=== PATIENT | male | born 1960 | race African-American/Black ===

== ENCOUNTER 2021-09-10 20:04 | Inpatient (IN) | payer SELFPAY ==
[2021-09-10] MEDS ORDERED: Vancomycin 1 GM/200 ML BAG ONE (20:35)
[2021-09-10] MEDS ORDERED: Cefepime 2 GM VIAL ONE (20:35)
[2021-09-10 20:44] LABS: #Basophils 0.1 thou/uL (0.0-0.2); #Lymphocytes 1.5 thou/uL (1.20-3.40); #Monocytes 0.8 thou/uL (0.11-0.59); #Neutrophils 12.8 thou/uL (1.40-6.50); %Basophils 0.4 % (0.0-1.0); %Eosinophils 0.2 % (0.0-10.0); %Lymphocytes 10.1 % (21.0-51.0); %Monocytes 5.3 % (0.0-10.0); Hemoglobin 15.7 g/dL (14.0-18.0); Mean Corpuscular HGB CONC 32.6 g/dL (32.0-36.0); Mean Corpuscular Hemoglobin 28.4 pg (27.0-31.0); Mean Platelet Volume 7.6 fL (7.4-10.4); Platelet Count 382 thou/uL (130-400); RBC Distribution Width 13.9 % (11.5-14.5); Red Blood Cell (RBC) Count 5.55 mill/uL (4.70-6.10); White Blood Cell (WBC) Count 15.2 thou/uL (4.8-10.8)
[2021-09-10 20:45] LABS: Bilirubin 1+ (Negative); Blood, Urine 3+ (Negative); Clarity Turbid (Clear); Glucose, Urine (Dipstick) Normal (Negative); Ketone, Urine Negative (Negative); Leukocyte Negative Leu/uL (Negative); Nitrite Negative (Negative); Protein, Urine (Dipstick) 100 mg/dL (Neg-Trace); RBC/HPF 21-50 HPF (0-3); Specific Gravity, Urine 1.026 (1.002-1.036); Squamous Epithelial 0-3 HPF (0-3); Transitional Epithelial 0-3 HPF (None Seen); WBC/HPF 0-3 HPF (0-3); pH, Urine 5.5 (5.0-9.0)
[2021-09-10 20:48] LABS: Amphetamine Not Detected (NotDetected); Barbiturates Screen Not Detected (NotDetected); Benzodiazepine Screen Not Detected (NotDetected); Cocaine Metabolite Screen Not Detected (NotDetected); Methadone Not Detected (NotDetected); Methamphetamine Not Detected (NotDetected); Opiate Screen Not Detected (NotDetected); Oxycodone Screen Not Detected (NotDetected); Phencyclidine (PCP) Not Detected (NotDetected); THC/Cannabinoid Screen Not Detected (NotDetected); Tricyclic Screen Not Detected (NotDetected)
[2021-09-10 21:04] LABS: ALT (SGPT) 101 U/L (8-55); AST (SGOT) 146 U/L (5-34); Acetaminophen Less than 10.0 mcg/mL (10.0-30.0); Albumin 4.8 g/dL (3.5-5.0); Alcohol Less than 10 mg/dL (Less than 10); Alkaline Phosphatase 95 U/L (40-110); Anion Gap 24 mmol/L (10-20); BUN (Urea Nitrogen) 78 mg/dL (8.4-25.7); Bilirubin, Total 3.6 mg/dL (0.2-1.2); Calc. Creatinine Clearance 0 mL/min (70-130); Calcium 10.2 mg/dL (7.8-10.44); Carbon Dioxide 18 mmol/L (22-29); Chloride 112 mmol/L (98-107); Globulin 4.3 g/dL (2.4-3.5); Glucose 152 mg/dL (70-105); Magnesium 3.3 mg/dL (1.6-2.6); Potassium 4.2 mmol/L (3.5-5.1); Protein, Total 9.1 g/dL (6.0-8.3); Salicylate Less than 8.0 mg/dL (15.0-30.0); Sodium 150 mmol/L (136-145)
[2021-09-10 21:06] LABS: Bacteria/HPF 4+ HPF (None Seen)
[2021-09-10 21:18] LABS: CK (CPK) 6160 U/L (30-200)
[2021-09-10 21:47] LABS: CKMB 12.7 ng/mL (0-6.6)
[2021-09-10] MEDS ORDERED: Acetaminophen 325 MG TAB PO PRN (23:48)
[2021-09-10] MEDS ORDERED: Ondansetron ODT 4 MG TAB PO PRN (23:48)
[2021-09-10] MEDS ORDERED: hydrALAZINE 20 MG/ML VIAL SLOW IVP PRN (23:51)
[2021-09-11 00:55] LABS: SARS-CoV-2 NAA Rapid Test Not Detected (NotDetected)
[2021-09-11 01:53] LABS: Anion Gap 19 mmol/L (10-20); BUN (Urea Nitrogen) 70 mg/dL (8.4-25.7); Calc. Creatinine Clearance 37 mL/min (70-130); Calcium 8.9 mg/dL (7.8-10.44); Carbon Dioxide 16 mmol/L (22-29); Chloride 117 mmol/L (98-107); Glucose 146 mg/dL (70-105); Potassium 4.2 mmol/L (3.5-5.1); Sodium 148 mmol/L (136-145)
[2021-09-11 06:38] LABS: #Basophils 0.1 thou/uL (0.0-0.2); #Lymphocytes 3.2 thou/uL (1.20-3.40); #Monocytes 1.6 thou/uL (0.11-0.59); #Neutrophils 12.8 thou/uL (1.40-6.50); %Basophils 0.4 % (0.0-1.0); %Eosinophils 0.1 % (0.0-10.0); %Lymphocytes 18.2 % (21.0-51.0); %Neutrophils 72.3 % (42.0-75.0); Hemoglobin 13.7 g/dL (14.0-18.0); Mean Corpuscular HGB CONC 31.8 g/dL (32.0-36.0); Mean Corpuscular Hemoglobin 28.2 pg (27.0-31.0); Mean Corpuscular Volume 88.5 fL (78.0-98.0); Mean Platelet Volume 7.4 fL (7.4-10.4); Platelet Count 319 thou/uL (130-400); RBC Distribution Width 13.7 % (11.5-14.5); Red Blood Cell (RBC) Count 4.85 mill/uL (4.70-6.10); White Blood Cell (WBC) Count 17.8 thou/uL (4.8-10.8)
[2021-09-11 06:56] LABS: Anion Gap 15 mmol/L (10-20); BUN (Urea Nitrogen) 69 mg/dL (8.4-25.7); Calc. Creatinine Clearance 44 mL/min (70-130); Calcium 8.9 mg/dL (7.8-10.44); Carbon Dioxide 18 mmol/L (22-29); Cardiac Risk 8.5 (Less than 4.5); Chloride 117 mmol/L (98-107); Cholesterol 237 mg/dl (< 200 Desired); Glucose 127 mg/dL (70-105); HDL Cholesterol 28 mg/dL (>60 Neg Risk); LDL Cholesterol, Calculated 173 mg/dL; Potassium 4.1 mmol/L (3.5-5.1); Sodium 146 mmol/L (136-145); Triglycerides 181 mg/dL (Less than 150)
[2021-09-11 06:57] LABS: Troponin I 0.256 ng/mL (< 0.028)
[2021-09-11] MEDS ORDERED: Enoxaparin Sodium 30 MG/0.3 ML SYRINGE SC SCH (09:00)
[2021-09-11] MEDS ORDERED: Aspirin 300 MG Suppository PR SCH (09:00)
[2021-09-11] MEDS ORDERED: Vancomycin HCl 1 GM in Sodium Chloride 0.9% 250 ML 300 ML IVPB SCH (09:00)
[2021-09-11] MEDS ORDERED: Enoxaparin Sodium 40 MG/0.4 ML SYRINGE SC SCH (09:45)
[2021-09-11] MEDS: Cefepime 2 GM in Sodium Chloride 0.9% 100 ML IVPB SCH ×2 (10:25→22:12)
[2021-09-11] MEDS: Dextrose 5 % And 0.9 % NaCl 1,000 ML IV SCH (14:11)
[2021-09-11] MEDS ORDERED: hydrALAZINE 20 MG/ML VIAL SLOW IVP PRN (17:15)
[2021-09-11] MEDS ORDERED: Atorvastatin Calcium 40 MG TAB PO SCH (21:00)
[2021-09-11] MEDS: Labetalol HCl 100 MG/20 ML VIAL SLOW IVP PRN (22:11)
[2021-09-11] MEDS: Vancomycin HCl 1.25 GM in Sodium Chloride 0.9% 250 ML 250 ML IVPB SCH (23:33)
[2021-09-12 04:49] LABS: #Basophils 0.1 thou/uL (0.0-0.2); #Eosinphils 0.2 thou/uL (0.0-0.7); #Lymphocytes 3.4 thou/uL (1.20-3.40); #Monocytes 1.3 thou/uL (0.11-0.59); #Neutrophils 9.2 thou/uL (1.40-6.50); %Basophils 0.5 % (0.0-1.0); %Eosinophils 1.5 % (0.0-10.0); %Lymphocytes 23.8 % (21.0-51.0); %Monocytes 9.2 % (0.0-10.0); Hemoglobin 13.5 g/dL (14.0-18.0); Mean Corpuscular HGB CONC 31.9 g/dL (32.0-36.0); Mean Corpuscular Hemoglobin 28.9 pg (27.0-31.0); Mean Corpuscular Volume 90.6 fL (78.0-98.0); Mean Platelet Volume 7.4 fL (7.4-10.4); Platelet Count 272 thou/uL (130-400); RBC Distribution Width 13.7 % (11.5-14.5); Red Blood Cell (RBC) Count 4.67 mill/uL (4.70-6.10); White Blood Cell (WBC) Count 14.2 thou/uL (4.8-10.8)
[2021-09-12 05:10] LABS: Hemoglobin A1c 5.2 % (4.0-6.0)
[2021-09-12 05:11] LABS: ALT (SGPT) 82 U/L (8-55); AST (SGOT) 117 U/L (5-34); Albumin 3.7 g/dL (3.5-5.0); Alkaline Phosphatase 73 U/L (40-110); Anion Gap 12 mmol/L (10-20); BUN (Urea Nitrogen) 49 mg/dL (8.4-25.7); Bilirubin, Total 2.4 mg/dL (0.2-1.2); Calc. Creatinine Clearance 60 mL/min (70-130); Calcium 8.9 mg/dL (7.8-10.44); Carbon Dioxide 22 mmol/L (22-29); Chloride 121 mmol/L (98-107); Globulin 3.3 g/dL (2.4-3.5); Glucose 109 mg/dL (70-105); Potassium 4.3 mmol/L (3.5-5.1); Sodium 151 mmol/L (136-145)
[2021-09-12 05:23] LABS: CK (CPK) 4973 U/L (30-200)
[2021-09-12] MEDS: Cefepime 2 GM in Sodium Chloride 0.9% 100 ML IVPB SCH ×2 (08:31→20:14)
[2021-09-12] MEDS: Enoxaparin Sodium 40 MG/0.4 ML SYRINGE SC SCH (08:31)
[2021-09-12] MEDS: Dextrose 5 % And 0.9 % NaCl 1,000 ML IV SCH ×2 (08:41→08:42)
[2021-09-12] MEDS ORDERED: Aspirin 325 mg Enteric Coated Tablet PO SCH (09:00)
[2021-09-12] MEDS: Dextrose 5% in Water 1,000 ML IV SCH ×2 (09:17→20:14)
[2021-09-12] MEDS: Labetalol HCl 100 MG/20 ML VIAL SLOW IVP PRN (17:37)
[2021-09-12 20:22] LABS: Vancomycin, Trough 6.3 ug/mL
[2021-09-12] MEDS: Vancomycin HCl 1.25 GM in Sodium Chloride 0.9% 250 ML 250 ML IVPB SCH (21:36)
[2021-09-12] MEDS: VANCOMYCIN 1.25 GM/250 ML BAG 1.25 GM in Premix Bag 1 BAG IVPB SCH (21:50)
[2021-09-13] MEDS: Labetalol HCl 100 MG/20 ML VIAL SLOW IVP PRN (00:09)
[2021-09-13 05:10] LABS: #Basophils 0.1 thou/uL (0.0-0.2); #Eosinphils 0.4 thou/uL (0.0-0.7); #Lymphocytes 3.6 thou/uL (1.20-3.40); #Monocytes 1.2 thou/uL (0.11-0.59); #Neutrophils 8.1 thou/uL (1.40-6.50); %Basophils 0.8 % (0.0-1.0); %Eosinophils 3.2 % (0.0-10.0); %Lymphocytes 26.9 % (21.0-51.0); %Monocytes 9.2 % (0.0-10.0); %Neutrophils 59.9 % (42.0-75.0); Hemoglobin 13.6 g/dL (14.0-18.0); Mean Corpuscular HGB CONC 31.2 g/dL (32.0-36.0); Mean Corpuscular Hemoglobin 28.3 pg (27.0-31.0); Mean Corpuscular Volume 90.6 fL (78.0-98.0); Mean Platelet Volume 7.6 fL (7.4-10.4); Platelet Count 306 thou/uL (130-400); RBC Distribution Width 13.8 % (11.5-14.5); Red Blood Cell (RBC) Count 4.82 mill/uL (4.70-6.10); White Blood Cell (WBC) Count 13.5 thou/uL (4.8-10.8)
[2021-09-13 05:34] LABS: ALT (SGPT) 112 U/L (8-55); AST (SGOT) 132 U/L (5-34); Albumin 3.8 g/dL (3.5-5.0); Alkaline Phosphatase 83 U/L (40-110); Anion Gap 13 mmol/L (10-20); BUN (Urea Nitrogen) 32 mg/dL (8.4-25.7); Bilirubin, Total 2.8 mg/dL (0.2-1.2); CK (CPK) 3803 U/L (30-200); Calc. Creatinine Clearance 69 mL/min (70-130); Calcium 9.1 mg/dL (7.8-10.44); Carbon Dioxide 20 mmol/L (22-29); Chloride 120 mmol/L (98-107); Globulin 3.5 g/dL (2.4-3.5); Glucose 104 mg/dL (70-105); Potassium 3.9 mmol/L (3.5-5.1); Protein, Total 7.3 g/dL (6.0-8.3); Sodium 149 mmol/L (136-145)
[2021-09-13] MEDS: Dextrose 5% in Water 1,000 ML IV SCH ×3 (08:20→20:20)
[2021-09-13] MEDS ORDERED: Aspirin 300 MG Suppository PR SCH (09:00)
[2021-09-13] MEDS: Cefepime 2 GM in Sodium Chloride 0.9% 100 ML IVPB SCH ×2 (09:24→20:19)
[2021-09-13] MEDS: Enoxaparin Sodium 40 MG/0.4 ML SYRINGE SC SCH (09:25)
[2021-09-13] MEDS: VANCOMYCIN 1.25 GM/250 ML BAG 1.25 GM in Premix Bag 1 BAG IVPB SCH ×2 (10:08→22:05)
[2021-09-13] MEDS ORDERED: cloNIDine 0.2mg/24 Hour PATCH TD SCH (17:00)
[2021-09-14 05:40] LABS: ALT (SGPT) 224 U/L (8-55); AST (SGOT) 193 U/L (5-34); Albumin 3.5 g/dL (3.5-5.0); Alkaline Phosphatase 98 U/L (40-110); Anion Gap 11 mmol/L (10-20); BUN (Urea Nitrogen) 28 mg/dL (8.4-25.7); Bilirubin, Total 1.7 mg/dL (0.2-1.2); CK (CPK) 2440 U/L (30-200); Calc. Creatinine Clearance 76 mL/min (70-130); Calcium 8.8 mg/dL (7.8-10.44); Carbon Dioxide 21 mmol/L (22-29); Chloride 117 mmol/L (98-107); Globulin 3.3 g/dL (2.4-3.5); Glucose 110 mg/dL (70-105); Potassium 3.9 mmol/L (3.5-5.1); Protein, Total 6.8 g/dL (6.0-8.3); Sodium 145 mmol/L (136-145)
[2021-09-14] MEDS: Cefepime 2 GM in Sodium Chloride 0.9% 100 ML IVPB SCH (07:40)
[2021-09-14] MEDS ORDERED: Budesonide 0.25 MG/2 ML NEB ONE (08:41)
[2021-09-14] MEDS: Enoxaparin Sodium 40 MG/0.4 ML SYRINGE SC SCH (08:47)
[2021-09-14] MEDS: Aspirin 325 mg Enteric Coated Tablet PO SCH (08:47)
[2021-09-14] MEDS: Dextrose 5% in Water 1,000 ML IV SCH ×2 (08:56→22:55)
[2021-09-14 09:18] LABS: Vancomycin, Trough 16.2 ug/mL
[2021-09-14] MEDS: VANCOMYCIN 1.25 GM/250 ML BAG 1.25 GM in Premix Bag 1 BAG IVPB SCH (09:36)
[2021-09-14 19:15] LABS: #Basophils 0.1 thou/uL (0.0-0.2); #Eosinphils 0.4 thou/uL (0.0-0.7); #Lymphocytes 4.1 thou/uL (1.20-3.40); #Monocytes 0.9 thou/uL (0.11-0.59); #Neutrophils 5.5 thou/uL (1.40-6.50); %Basophils 0.7 % (0.0-1.0); %Eosinophils 3.7 % (0.0-10.0); %Lymphocytes 37.3 % (21.0-51.0); %Monocytes 8.4 % (0.0-10.0); Hemoglobin 12.9 g/dL (14.0-18.0); Mean Corpuscular HGB CONC 31.3 g/dL (32.0-36.0); Mean Corpuscular Hemoglobin 28.4 pg (27.0-31.0); Mean Corpuscular Volume 90.5 fL (78.0-98.0); Mean Platelet Volume 7.8 fL (7.4-10.4); Platelet Count 289 thou/uL (130-400); RBC Distribution Width 13.7 % (11.5-14.5); Red Blood Cell (RBC) Count 4.56 mill/uL (4.70-6.10); White Blood Cell (WBC) Count 10.9 thou/uL (4.8-10.8)
[2021-09-14 19:25] LABS: Prothrombin Time 13.5 sec (12.0-14.7)
[2021-09-14 19:26] LABS: PTT 31.8 sec (22.9-36.1)
[2021-09-14 19:33] LABS: Lactic Acid 0.8 mmol/L (0.5-2.2)
[2021-09-14 19:38] LABS: ALT (SGPT) 189 U/L (8-55); AST (SGOT) 129 U/L (5-34); Albumin 3.6 g/dL (3.5-5.0); Alkaline Phosphatase 101 U/L (40-110); Anion Gap 13 mmol/L (10-20); BUN (Urea Nitrogen) 30 mg/dL (8.4-25.7); Bilirubin, Total 1.3 mg/dL (0.2-1.2); Calc. Creatinine Clearance 85 mL/min (70-130); Calcium 8.6 mg/dL (7.8-10.44); Carbon Dioxide 18 mmol/L (22-29); Chloride 115 mmol/L (98-107); Globulin 3.3 g/dL (2.4-3.5); Glucose 101 mg/dL (70-105); Potassium 3.8 mmol/L (3.5-5.1); Protein, Total 6.9 g/dL (6.0-8.3); Sodium 142 mmol/L (136-145)
[2021-09-15 06:09] LABS: ALT (SGPT) 159 U/L (8-55); AST (SGOT) 100 U/L (5-34); Albumin 3.4 g/dL (3.5-5.0); Alkaline Phosphatase 97 U/L (40-110); Anion Gap 12 mmol/L (10-20); BUN (Urea Nitrogen) 25 mg/dL (8.4-25.7); Bilirubin, Total 1.3 mg/dL (0.2-1.2); CK (CPK) 1483 U/L (30-200); Calc. Creatinine Clearance 88 mL/min (70-130); Calcium 8.6 mg/dL (7.8-10.44); Carbon Dioxide 20 mmol/L (22-29); Chloride 112 mmol/L (98-107); Globulin 3.2 g/dL (2.4-3.5); Glucose 108 mg/dL (70-105); Potassium 3.5 mmol/L (3.5-5.1); Protein, Total 6.6 g/dL (6.0-8.3); Sodium 140 mmol/L (136-145)
[2021-09-15] MEDS: Dextrose 5% in Water 1,000 ML IV SCH ×2 (08:09→16:42)
[2021-09-15] MEDS: Enoxaparin Sodium 40 MG/0.4 ML SYRINGE SC SCH (09:02)
[2021-09-15] MEDS: Aspirin 325 mg Enteric Coated Tablet PO SCH (09:02)
[2021-09-15] MEDS: hydrALAZINE 20 MG/ML VIAL SLOW IVP PRN (19:37)
[2021-09-16] MEDS: Dextrose 5% in Water 1,000 ML IV SCH ×2 (04:50→09:20)
[2021-09-16 05:49] LABS: ALT (SGPT) 157 U/L (8-55); AST (SGOT) 110 U/L (5-34); Albumin 3.7 g/dL (3.5-5.0); Alkaline Phosphatase 100 U/L (40-110); Anion Gap 11 mmol/L (10-20); BUN (Urea Nitrogen) 20 mg/dL (8.4-25.7); Bilirubin, Total 1.1 mg/dL (0.2-1.2); CK (CPK) 1030 U/L (30-200); Calc. Creatinine Clearance 96 mL/min (70-130); Calcium 9.1 mg/dL (7.8-10.44); Carbon Dioxide 20 mmol/L (22-29); Chloride 109 mmol/L (98-107); Globulin 3.4 g/dL (2.4-3.5); Glucose 99 mg/dL (70-105); Potassium 3.4 mmol/L (3.5-5.1); Protein, Total 7.1 g/dL (6.0-8.3); Sodium 137 mmol/L (136-145)
[2021-09-16] MEDS: Enoxaparin Sodium 40 MG/0.4 ML SYRINGE SC SCH (08:27)
[2021-09-16] MEDS: Aspirin 325 mg Enteric Coated Tablet PO SCH (08:28)
[2021-09-16] MEDS ORDERED: Potassium Chloride 20 MEQ TAB PO SCH (09:00)
[2021-09-16] MEDS: Amlodipine 10 MG TAB PO SCH (09:19)
[2021-09-16] MEDS: Potassium Chloride 20 MEQ TAB PO SCH (16:22)
[2021-09-16] MEDS ORDERED: Pantoprazole 40 MG VIAL IVP SCH (19:00)
[2021-09-16 19:49] LABS: Hemoglobin 14.3 g/dL (14.0-18.0)
[2021-09-16] MEDS: Acetaminophen 650 MG Suppository PR PRN (21:13)
[2021-09-16] MEDS: Ondansetron PF 4 MG/2 ML Vial IVP PRN (21:14)
[2021-09-17 04:03] LABS: Hemoglobin 13.9 g/dL (14.0-18.0); Platelet Count 351 thou/uL (130-400)
[2021-09-17] MEDS: Ondansetron PF 4 MG/2 ML Vial IVP PRN ×2 (04:08→12:15)
[2021-09-17 04:09] LABS: ALT (SGPT) 172 U/L (8-55); AST (SGOT) 111 U/L (5-34); Albumin 3.9 g/dL (3.5-5.0); Alkaline Phosphatase 104 U/L (40-110); Anion Gap 15 mmol/L (10-20); BUN (Urea Nitrogen) 21 mg/dL (8.4-25.7); Bilirubin, Total 1.2 mg/dL (0.2-1.2); CK (CPK) 724 U/L (30-200); Calc. Creatinine Clearance 91 mL/min (70-130); Calcium 9.3 mg/dL (7.8-10.44); Carbon Dioxide 22 mmol/L (22-29); Chloride 105 mmol/L (98-107); Globulin 3.7 g/dL (2.4-3.5); Glucose 129 mg/dL (70-105); Magnesium 2.3 mg/dL (1.6-2.6); Potassium 3.6 mmol/L (3.5-5.1); Protein, Total 7.6 g/dL (6.0-8.3); Sodium 138 mmol/L (136-145)
[2021-09-17] MEDS: Dextrose 5% in Water 1,000 ML IV SCH ×2 (04:09→16:12)
[2021-09-17] MEDS: Amlodipine 10 MG TAB PO SCH (08:45)
[2021-09-17] MEDS: Enoxaparin Sodium 40 MG/0.4 ML SYRINGE SC SCH (08:46)
[2021-09-17] MEDS: Potassium Chloride 20 MEQ TAB PO SCH ×2 (08:46→16:11)
[2021-09-17] MEDS ORDERED: Senokot S 8.6-50 MG TAB PO SCH (12:00)
[2021-09-17 12:31] LABS: SARS-CoV-2 PCR by NAA Not Detected (NotDetected)
[2021-09-17] MEDS: Senokot S 8.6-50 MG TAB PO SCH (21:40)
[2021-09-17] MEDS: Ketorolac Tromethamine 30 MG/ML VIAL IVP PRN (23:43)
[2021-09-18] MEDS: Dextrose 5% in Water 1,000 ML IV SCH ×2 (04:32→16:13)
[2021-09-18 04:57] LABS: #Basophils 0.1 thou/uL (0.0-0.2); #Eosinphils 0.2 thou/uL (0.0-0.7); #Lymphocytes 4.2 thou/uL (1.20-3.40); #Monocytes 1.3 thou/uL (0.11-0.59); %Basophils 0.4 % (0.0-1.0); %Eosinophils 1.5 % (0.0-10.0); %Lymphocytes 24.8 % (21.0-51.0); %Monocytes 7.5 % (0.0-10.0); %Neutrophils 65.8 % (42.0-75.0); Hemoglobin 13.3 g/dL (14.0-18.0); Mean Corpuscular Hemoglobin 29.1 pg (27.0-31.0); Mean Corpuscular Volume 90.8 fL (78.0-98.0); Mean Platelet Volume 7.6 fL (7.4-10.4); Platelet Count 339 thou/uL (130-400); RBC Distribution Width 13.6 % (11.5-14.5); Red Blood Cell (RBC) Count 4.56 mill/uL (4.70-6.10); White Blood Cell (WBC) Count 16.7 thou/uL (4.8-10.8)
[2021-09-18 05:16] LABS: ALT (SGPT) 147 U/L (8-55); AST (SGOT) 89 U/L (5-34); Albumin 3.7 g/dL (3.5-5.0); Alkaline Phosphatase 100 U/L (40-110); Anion Gap 14 mmol/L (10-20); BUN (Urea Nitrogen) 24 mg/dL (8.4-25.7); Bilirubin, Total 1.5 mg/dL (0.2-1.2); CK (CPK) 471 U/L (30-200); Calc. Creatinine Clearance 80 mL/min (70-130); Calcium 9.3 mg/dL (7.8-10.44); Carbon Dioxide 26 mmol/L (22-29); Chloride 102 mmol/L (98-107); Globulin 3.9 g/dL (2.4-3.5); Glucose 109 mg/dL (70-105); Magnesium 2.5 mg/dL (1.6-2.6); Potassium 3.9 mmol/L (3.5-5.1); Protein, Total 7.6 g/dL (6.0-8.3); Sodium 138 mmol/L (136-145)
[2021-09-18] MEDS: Senokot S 8.6-50 MG TAB PO SCH ×2 (08:48→23:51)
[2021-09-18] MEDS: Potassium Chloride 20 MEQ TAB PO SCH ×2 (08:48→16:11)
[2021-09-18] MEDS: Amlodipine 10 MG TAB PO SCH (08:48)
[2021-09-18] MEDS: Enoxaparin Sodium 40 MG/0.4 ML SYRINGE SC SCH (08:48)
[2021-09-18] MEDS: Aspirin 325 mg Enteric Coated Tablet PO SCH (09:01)
[2021-09-18] MEDS: Atorvastatin Calcium 40 MG TAB PO SCH (23:51)
[2021-09-19] MEDS: Ketorolac Tromethamine 30 MG/ML VIAL IVP PRN (01:56)
[2021-09-19 05:36] LABS: #Basophils 0.1 thou/uL (0.0-0.2); #Eosinphils 0.1 thou/uL (0.0-0.7); #Lymphocytes 3.3 thou/uL (1.20-3.40); #Monocytes 1.1 thou/uL (0.11-0.59); #Neutrophils 7.2 thou/uL (1.40-6.50); %Basophils 0.9 % (0.0-1.0); %Eosinophils 1.2 % (0.0-10.0); %Lymphocytes 28.1 % (21.0-51.0); %Neutrophils 60.9 % (42.0-75.0); Hemoglobin 14.5 g/dL (14.0-18.0); Mean Corpuscular HGB CONC 31.9 g/dL (32.0-36.0); Mean Corpuscular Hemoglobin 28.8 pg (27.0-31.0); Mean Corpuscular Volume 90.4 fL (78.0-98.0); Mean Platelet Volume 7.6 fL (7.4-10.4); Platelet Count 322 thou/uL (130-400); RBC Distribution Width 13.3 % (11.5-14.5); Red Blood Cell (RBC) Count 5.02 mill/uL (4.70-6.10); White Blood Cell (WBC) Count 11.8 thou/uL (4.8-10.8)
[2021-09-19 05:59] LABS: Magnesium 2.6 mg/dL (1.6-2.6)
[2021-09-19] MEDS ORDERED: Acetaminophen 325 MG TAB PER TUBE PRN (09:45)
[2021-09-19] MEDS ORDERED: Potassium Bicarbonate/Cit Ac 20 MEQ TAB PO SCH ×2 (09:45→17:00)
[2021-09-19] MEDS ORDERED: Aspirin 325 MG TAB PO SCH (09:45)
[2021-09-19] MEDS: Enoxaparin Sodium 40 MG/0.4 ML SYRINGE SC SCH (10:43)
[2021-09-19] MEDS: Amlodipine 10 MG TAB PO SCH (10:43)
[2021-09-19] MEDS: Senokot S 8.6-50 MG TAB PO SCH ×2 (10:43→21:32)
[2021-09-19] MEDS: Dextrose 5% in Water 1,000 ML IV SCH (10:44)
[2021-09-19] MEDS: Aspirin 325 MG TAB PO SCH (10:44)
[2021-09-19] MEDS: Aspirin 325 mg Enteric Coated Tablet PO SCH (10:45)
[2021-09-19] MEDS: Potassium Chloride 20 MEQ TAB PO SCH (10:45)
[2021-09-19] MEDS ORDERED: Ketorolac Tromethamine 30 MG/ML VIAL IVP PRN (12:16)
[2021-09-19] MEDS ORDERED: D5 1/2 NS w/20 mEq KCL 1,000 ML IV SCH (12:30)
[2021-09-19 13:41] LABS: Anion Gap 13 mmol/L (10-20); BUN (Urea Nitrogen) 20 mg/dL (8.4-25.7); Calc. Creatinine Clearance 98 mL/min (70-130); Calcium 9.4 mg/dL (7.8-10.44); Carbon Dioxide 24 mmol/L (22-29); Chloride 102 mmol/L (98-107); Glucose 108 mg/dL (70-105); Phosphorus 3.1 mg/dL (2.3-4.7); Potassium 3.4 mmol/L (3.5-5.1); Sodium 136 mmol/L (136-145)
[2021-09-19] MEDS ORDERED: Potassium Phosphate 15 MMOL in Sodium Chloride 0.9% 250 ML 250 ML IVPB SCH (14:00)
[2021-09-19] MEDS: Multivitamins, Adult 10 ML in D5 1/2 NS w/20 mEq KCL 1,000 ML IV SCH (14:20)
[2021-09-19] MEDS: Carvedilol 6.25 MG TAB PO SCH (16:28)
[2021-09-19] MEDS: hydrALAZINE 20 MG/ML VIAL SLOW IVP PRN (17:25)
[2021-09-19] MEDS: Atorvastatin Calcium 40 MG TAB PO SCH (21:33)
[2021-09-20] MEDS ORDERED: Ziprasidone 20 MG VIAL IM SCH (03:45)
[2021-09-20] MEDS ORDERED: Sterile Water 10 ML VIAL FS PRN (03:45)
[2021-09-20 05:23] LABS: #Basophils 0.1 thou/uL (0.0-0.2); #Eosinphils 0.2 thou/uL (0.0-0.7); #Lymphocytes 1.9 thou/uL (1.20-3.40); #Neutrophils 7.2 thou/uL (1.40-6.50); %Basophils 0.6 % (0.0-1.0); %Eosinophils 2.3 % (0.0-10.0); %Lymphocytes 18.6 % (21.0-51.0); %Monocytes 9.2 % (0.0-10.0); %Neutrophils 69.4 % (42.0-75.0); Hemoglobin 12.7 g/dL (14.0-18.0); Mean Corpuscular HGB CONC 32.1 g/dL (32.0-36.0); Mean Corpuscular Hemoglobin 28.8 pg (27.0-31.0); Mean Corpuscular Volume 89.8 fL (78.0-98.0); Mean Platelet Volume 7.3 fL (7.4-10.4); Platelet Count 387 thou/uL (130-400); RBC Distribution Width 13.2 % (11.5-14.5); Red Blood Cell (RBC) Count 4.42 mill/uL (4.70-6.10); White Blood Cell (WBC) Count 10.4 thou/uL (4.8-10.8)
[2021-09-20 05:43] LABS: Phosphorus 2.7 mg/dL (2.3-4.7)
[2021-09-20 05:47] LABS: ALT (SGPT) 133 U/L (8-55); AST (SGOT) 68 U/L (5-34); Albumin 3.7 g/dL (3.5-5.0); Alkaline Phosphatase 110 U/L (40-110); Anion Gap 13 mmol/L (10-20); BUN (Urea Nitrogen) 19 mg/dL (8.4-25.7); Bilirubin, Total 1.3 mg/dL (0.2-1.2); CK (CPK) 378 U/L (30-200); Calc. Creatinine Clearance 100 mL/min (70-130); Calcium 9.2 mg/dL (7.8-10.44); Carbon Dioxide 22 mmol/L (22-29); Chloride 105 mmol/L (98-107); Globulin 3.4 g/dL (2.4-3.5); Glucose 115 mg/dL (70-105); Magnesium 2.2 mg/dL (1.6-2.6); Potassium 3.7 mmol/L (3.5-5.1); Protein, Total 7.1 g/dL (6.0-8.3); Sodium 136 mmol/L (136-145)
[2021-09-20] MEDS: Multivitamins, Adult 10 ML in D5 1/2 NS w/20 mEq KCL 1,000 ML IV SCH ×2 (05:47→15:38)
[2021-09-20 09:06] LABS: Base Excess (BEa) 1.4 mEq/L (-2.0 to +3.0); CO2 Tension 31.7 mmHg (35.0-45.0); Calcium, Ionized (arterial) 1.17 mmol/L (1.12-1.30); Carboxyhemoglobin (COHb) 0.6 gm% (0.0-3.0); Hemoglobin (Hb) 12.6 g/dL (14.0-18.0); O2 Tension (PaO2), arterial 79.8 mmHg (80.0-100.0); Potassium - ABG Lab 3.64 mmol/L (3.70-5.30)
[2021-09-20 09:20] LABS: Troponin I 0.068 ng/mL (< 0.028)
[2021-09-20] MEDS: Carvedilol 6.25 MG TAB PO SCH ×2 (09:43→17:50)
[2021-09-20] MEDS: Aspirin 325 MG TAB PO SCH (09:43)
[2021-09-20] MEDS: Senokot S 8.6-50 MG TAB PO SCH ×2 (09:43→21:24)
[2021-09-20] MEDS: Enoxaparin Sodium 40 MG/0.4 ML SYRINGE SC SCH (09:44)
[2021-09-20 10:16] LABS: ALV-art Gradient 30.305 mmHg (0-20); Puncture Site LBA
[2021-09-20] MEDS: Atorvastatin Calcium 40 MG TAB PO SCH (21:24)
[2021-09-20] MEDS: Pantoprazole 40 MG VIAL IVP SCH (21:24)
[2021-09-21 04:53] LABS: #Basophils 0.1 thou/uL (0.0-0.2); #Eosinphils 0.2 thou/uL (0.0-0.7); #Lymphocytes 3.1 thou/uL (1.20-3.40); #Neutrophils 6.5 thou/uL (1.40-6.50); %Basophils 0.8 % (0.0-1.0); %Eosinophils 2.2 % (0.0-10.0); %Lymphocytes 28.5 % (21.0-51.0); %Monocytes 9.3 % (0.0-10.0); %Neutrophils 59.3 % (42.0-75.0); Mean Corpuscular HGB CONC 31.7 g/dL (32.0-36.0); Mean Corpuscular Hemoglobin 28.6 pg (27.0-31.0); Mean Corpuscular Volume 90.3 fL (78.0-98.0); Mean Platelet Volume 7.3 fL (7.4-10.4); Platelet Count 441 thou/uL (130-400); RBC Distribution Width 13.3 % (11.5-14.5); Red Blood Cell (RBC) Count 4.55 mill/uL (4.70-6.10); White Blood Cell (WBC) Count 10.9 thou/uL (4.8-10.8)
[2021-09-21 06:03] LABS: ALT (SGPT) 141 U/L (8-55); AST (SGOT) 75 U/L (5-34); Albumin 3.8 g/dL (3.5-5.0); Alkaline Phosphatase 110 U/L (40-110); Anion Gap 15 mmol/L (10-20); BUN (Urea Nitrogen) 15 mg/dL (8.4-25.7); Bilirubin, Total 1.5 mg/dL (0.2-1.2); Calc. Creatinine Clearance 99 mL/min (70-130); Calcium 9.4 mg/dL (7.8-10.44); Carbon Dioxide 20 mmol/L (22-29); Chloride 108 mmol/L (98-107); Globulin 3.6 g/dL (2.4-3.5); Glucose 102 mg/dL (70-105); Magnesium 2.2 mg/dL (1.6-2.6); Phosphorus 2.9 mg/dL (2.3-4.7); Potassium 4.1 mmol/L (3.5-5.1); Protein, Total 7.4 g/dL (6.0-8.3); Sodium 139 mmol/L (136-145)
[2021-09-21] MEDS: Multivitamins, Adult 10 ML in D5 1/2 NS w/20 mEq KCL 1,000 ML IV SCH ×2 (06:16→21:26)
[2021-09-21] MEDS ORDERED: Aspirin 300 MG Suppository PR SCH (09:00)
[2021-09-21] MEDS: Carvedilol 6.25 MG TAB PO SCH ×2 (09:31→18:28)
[2021-09-21] MEDS: Enoxaparin Sodium 40 MG/0.4 ML SYRINGE SC SCH (09:31)
[2021-09-21] MEDS: Pantoprazole 40 MG VIAL IVP SCH ×2 (09:31→21:26)
[2021-09-21] MEDS: Metoprolol Tartrate 5 MG/5 ML VIAL IVP PRN ×3 (10:45→21:45)
[2021-09-21] MEDS ORDERED: Iopamidol 370 76% 100 ML VIAL ONE (11:07)
[2021-09-21 11:10] LABS: Anion Gap 15 mmol/L (10-20); BUN (Urea Nitrogen) 15 mg/dL (8.4-25.7); Calc. Creatinine Clearance 103 mL/min (70-130); Calcium 9.2 mg/dL (7.8-10.44); Carbon Dioxide 19 mmol/L (22-29); Chloride 108 mmol/L (98-107); Glucose 91 mg/dL (70-105); Magnesium 2.2 mg/dL (1.6-2.6); Potassium 4.7 mmol/L (3.5-5.1); Sodium 137 mmol/L (136-145)
[2021-09-21] MEDS ORDERED: Aspirin Chewable 81 MG TAB PO SCH (11:45)
[2021-09-21] MEDS: Senokot S 8.6-50 MG TAB PO SCH ×3 (12:22→21:57)
[2021-09-21 13:15] LABS: CKMB 7.3 ng/mL (0-6.6)
[2021-09-21 16:21] LABS: Lactic Acid 1.3 mmol/L (0.5-2.2)
[2021-09-21 17:43] LABS: CKMB 10.3 ng/mL (0-6.6)
[2021-09-21] MEDS: Atorvastatin Calcium 40 MG TAB PO SCH ×2 (21:26→21:57)
[2021-09-21] MEDS: Ondansetron PF 4 MG/2 ML Vial IVP PRN (21:42)
[2021-09-22] MEDS: Metoprolol Tartrate 5 MG/5 ML VIAL IVP PRN (04:19)
[2021-09-22] MEDS: Acetaminophen 650 MG Suppository PR PRN (04:20)
[2021-09-22] MEDS: Pantoprazole 40 MG VIAL IVP SCH ×2 (08:05→21:04)
[2021-09-22] MEDS: Aspirin 300 MG Suppository PR SCH (08:06)
[2021-09-22] MEDS: hydrALAZINE 20 MG/ML VIAL SLOW IVP PRN (08:06)
[2021-09-22] MEDS: Enoxaparin Sodium 40 MG/0.4 ML SYRINGE SC SCH (08:06)
[2021-09-22] MEDS: Carvedilol 6.25 MG TAB PO SCH ×2 (08:08→18:44)
[2021-09-22] MEDS: Aspirin Chewable 81 MG TAB PO SCH (08:22)
[2021-09-22] MEDS: Senokot S 8.6-50 MG TAB PO SCH ×3 (08:23→21:37)
[2021-09-22] MEDS: Multivitamins, Adult 10 ML, Potassium Chloride 20 MEQ in Dextrose 5 %-0.45 % NaCl 1,000 ML IV SCH ×2 (09:17→21:03)
[2021-09-22] MEDS: Multivitamins, Adult 10 ML in D5 1/2 NS w/20 mEq KCL 1,000 ML IV SCH (09:18)
[2021-09-22] MEDS: Atorvastatin Calcium 40 MG TAB PO SCH ×2 (21:04→21:37)
[2021-09-23] MEDS: Metoprolol Tartrate 5 MG/5 ML VIAL IVP PRN ×2 (02:33→08:44)
[2021-09-23] MEDS: Acetaminophen 650 MG Suppository PR PRN (03:16)
[2021-09-23] MEDS: Enoxaparin Sodium 40 MG/0.4 ML SYRINGE SC SCH (08:17)
[2021-09-23] MEDS: Pantoprazole 40 MG VIAL IVP SCH ×2 (08:18→20:59)
[2021-09-23] MEDS: Aspirin 300 MG Suppository PR SCH (08:18)
[2021-09-23] MEDS: Carvedilol 6.25 MG TAB PO SCH (08:18)
[2021-09-23] MEDS: Aspirin Chewable 81 MG TAB PO SCH (08:19)
[2021-09-23] MEDS: Senokot S 8.6-50 MG TAB PO SCH ×2 (08:19→20:49)
[2021-09-23 08:34] LABS: #Basophils 0.1 thou/uL (0.0-0.2); #Eosinphils 0.2 thou/uL (0.0-0.7); #Lymphocytes 4.9 thou/uL (1.20-3.40); #Neutrophils 6.7 thou/uL (1.40-6.50); %Basophils 0.7 % (0.0-1.0); %Eosinophils 1.3 % (0.0-10.0); %Lymphocytes 38.1 % (21.0-51.0); %Monocytes 8.1 % (0.0-10.0); %Neutrophils 51.9 % (42.0-75.0); Hemoglobin 12.9 g/dL (14.0-18.0); Mean Corpuscular HGB CONC 31.5 g/dL (32.0-36.0); Mean Corpuscular Hemoglobin 28.7 pg (27.0-31.0); Mean Platelet Volume 6.9 fL (7.4-10.4); Platelet Count 445 thou/uL (130-400); RBC Distribution Width 12.9 % (11.5-14.5); Red Blood Cell (RBC) Count 4.49 mill/uL (4.70-6.10); White Blood Cell (WBC) Count 12.9 thou/uL (4.8-10.8)
[2021-09-23 08:51] LABS: Lactic Acid 0.7 mmol/L (0.5-2.2)
[2021-09-23 08:57] LABS: ALT (SGPT) 127 U/L (8-55); AST (SGOT) 66 U/L (5-34); Albumin 3.6 g/dL (3.5-5.0); Alkaline Phosphatase 114 U/L (40-110); Anion Gap 11 mmol/L (10-20); BUN (Urea Nitrogen) 10 mg/dL (8.4-25.7); Bilirubin, Total 1.3 mg/dL (0.2-1.2); Calc. Creatinine Clearance 96 mL/min (70-130); Calcium 9.4 mg/dL (7.8-10.44); Carbon Dioxide 24 mmol/L (22-29); Chloride 108 mmol/L (98-107); Globulin 3.4 g/dL (2.4-3.5); Glucose 99 mg/dL (70-105); Sodium 139 mmol/L (136-145)
[2021-09-23] MEDS ORDERED: D5 1/2 NS w/20 mEq KCL 1,000 ML IV SCH (11:30)
[2021-09-23] MEDS: Dextrose 5 %-0.45 % NaCl 1,000 ML IV SCH (15:00)
[2021-09-23] MEDS: Carvedilol 25 MG TAB PO SCH ×2 (17:25→18:24)
[2021-09-23] MEDS: Atorvastatin Calcium 40 MG TAB PO SCH (20:49)
[2021-09-24] MEDS: Dextrose 5 %-0.45 % NaCl 1,000 ML IV SCH (03:49)
[2021-09-24 06:06] LABS: #Basophils 0.1 thou/uL (0.0-0.2); #Eosinphils 0.1 thou/uL (0.0-0.7); #Lymphocytes 4.1 thou/uL (1.20-3.40); #Monocytes 1.1 thou/uL (0.11-0.59); #Neutrophils 8.3 thou/uL (1.40-6.50); %Basophils 0.8 % (0.0-1.0); %Lymphocytes 29.6 % (21.0-51.0); %Monocytes 8.4 % (0.0-10.0); %Neutrophils 60.3 % (42.0-75.0); Hemoglobin 12.9 g/dL (14.0-18.0); Mean Corpuscular HGB CONC 33.7 g/dL (32.0-36.0); Mean Corpuscular Hemoglobin 30.4 pg (27.0-31.0); Mean Corpuscular Volume 90.3 fL (78.0-98.0); Mean Platelet Volume 7.3 fL (7.4-10.4); Platelet Count 457 thou/uL (130-400); Red Blood Cell (RBC) Count 4.24 mill/uL (4.70-6.10); White Blood Cell (WBC) Count 13.7 thou/uL (4.8-10.8)
[2021-09-24] MEDS: Enoxaparin Sodium 40 MG/0.4 ML SYRINGE SC SCH (08:08)
[2021-09-24] MEDS: Carvedilol 25 MG TAB PO SCH (08:08)
[2021-09-24] MEDS: Senokot S 8.6-50 MG TAB PO SCH ×2 (08:09→20:39)
[2021-09-24] MEDS: Pantoprazole 40 MG VIAL IVP SCH ×2 (08:09→20:40)
[2021-09-24] MEDS: Aspirin Chewable 81 MG TAB PO SCH (08:09)
[2021-09-24] MEDS: Aspirin 300 MG Suppository PR SCH (08:09)
[2021-09-24] MEDS: Silver Sulfadiazine 50 GM TUBE TOP SCH (08:15)
[2021-09-24] MEDS: Metoprolol Tartrate 5 MG/5 ML VIAL IVP PRN (08:39)
[2021-09-24] MEDS ORDERED: Multivitamins, Adult 10 ML, Potassium Chloride 20 MEQ in Dextrose 5 %-0.45 % NaCl 1,000 ML IV SCH (09:00)
[2021-09-24] MEDS ORDERED: hydrALAZINE 25 MG TAB PO SCH (09:00)
[2021-09-24] MEDS ORDERED: Multivitamins, Adult 10 ML in Dextrose 5 %-0.45 % NaCl 1,000 ML IV SCH (09:00)
[2021-09-24] MEDS: Lisinopril 20 MG TAB PO SCH (12:16)
[2021-09-24] MEDS: Atorvastatin Calcium 40 MG TAB PO SCH (20:39)
[2021-09-24 22:40] LABS: SARS-CoV-2 PCR by NAA Not Detected (NotDetected)
[2021-09-25 04:43] LABS: #Basophils 0.1 thou/uL (0.0-0.2); #Eosinphils 0.1 thou/uL (0.0-0.7); #Lymphocytes 3.7 thou/uL (1.20-3.40); %Basophils 0.6 % (0.0-1.0); %Eosinophils 0.6 % (0.0-10.0); %Lymphocytes 26.7 % (21.0-51.0); %Monocytes 7.2 % (0.0-10.0); %Neutrophils 64.9 % (42.0-75.0); Hemoglobin 11.9 g/dL (14.0-18.0); Mean Corpuscular HGB CONC 31.6 g/dL (32.0-36.0); Mean Corpuscular Hemoglobin 28.7 pg (27.0-31.0); Mean Corpuscular Volume 90.6 fL (78.0-98.0); Mean Platelet Volume 6.8 fL (7.4-10.4); Platelet Count 448 thou/uL (130-400); RBC Distribution Width 12.9 % (11.5-14.5); Red Blood Cell (RBC) Count 4.16 mill/uL (4.70-6.10); White Blood Cell (WBC) Count 13.9 thou/uL (4.8-10.8)
[2021-09-25] MEDS: Senokot S 8.6-50 MG TAB PO SCH ×2 (09:23→21:38)
[2021-09-25] MEDS: Lisinopril 20 MG TAB PO SCH (09:24)
[2021-09-25] MEDS: Aspirin Chewable 81 MG TAB PO SCH (09:24)
[2021-09-25] MEDS: Aspirin 300 MG Suppository PR SCH (09:26)
[2021-09-25] MEDS: Pantoprazole 40 MG VIAL IVP SCH ×3 (09:26→21:39)
[2021-09-25] MEDS: Silver Sulfadiazine 50 GM TUBE TOP SCH (09:27)
[2021-09-25] MEDS ORDERED: GASTROGRAFIN 30 ML BOT ONE (09:53)
[2021-09-25] MEDS ORDERED: Iopamidol-370 76% 500 ML 1 ML ONE (09:53)
[2021-09-25] MEDS: Enoxaparin Sodium 40 MG/0.4 ML SYRINGE SC SCH (10:14)
[2021-09-25] MEDS: hydrALAZINE 20 MG/ML VIAL SLOW IVP PRN (10:14)
[2021-09-25 10:25] LABS: HBCM Index 0.07 S/CO (0-0.79); HBSAg Index 0.19 S/CO (0-0.99); Hep A IgM AB Non-Reactive (NonReactive); Hep A IgM S/CO 0.27 S/CO (0-0.79); Hep B Surf Ag Non-Reactive S/CO (NonReactive); Hep C IgG Ab Non-Reactive (NonReactive); Hep C Index 0.07 S/CO (0-0.79); Hepatitis B Core IgM Abs Non-Reactive (NonReactive)
[2021-09-25] MEDS: cefTRIAXone\\ROCEPHIN 1 GM in Sodium Chloride 0.9% 100 ML IVPB SCH (14:47)
[2021-09-25] MEDS: Carvedilol 25 MG TAB PO SCH (17:42)
[2021-09-25] MEDS: Atorvastatin Calcium 40 MG TAB PO SCH (21:38)
[2021-09-26 00:13] LABS: SARS-CoV-2 PCR by NAA Not Detected (NotDetected)
[2021-09-26] MEDS: Lisinopril 20 MG TAB PO SCH (10:05)
[2021-09-26] MEDS: Senokot S 8.6-50 MG TAB PO SCH ×2 (10:06→21:43)
[2021-09-26] MEDS: Enoxaparin Sodium 40 MG/0.4 ML SYRINGE SC SCH (10:06)
[2021-09-26] MEDS: Aspirin Chewable 81 MG TAB PO SCH (10:06)
[2021-09-26] MEDS: Aspirin 300 MG Suppository PR SCH (10:07)
[2021-09-26] MEDS: Pantoprazole 40 MG VIAL IVP SCH ×2 (10:07→21:44)
[2021-09-26] MEDS: Silver Sulfadiazine 50 GM TUBE TOP SCH (10:07)
[2021-09-26] MEDS: Carvedilol 25 MG TAB PO SCH ×2 (10:09→16:46)
[2021-09-26] MEDS ORDERED: Amlodipine 10 MG TAB PO SCH (10:15)
[2021-09-26] MEDS: cefTRIAXone\\ROCEPHIN 1 GM in Sodium Chloride 0.9% 100 ML IVPB SCH (16:45)
[2021-09-26] MEDS: Atorvastatin Calcium 40 MG TAB PO SCH (21:43)
[2021-09-27 05:36] LABS: #Basophils 0.1 thou/uL (0.0-0.2); #Lymphocytes 3.4 thou/uL (1.20-3.40); #Monocytes 1.4 thou/uL (0.11-0.59); #Neutrophils 11.6 thou/uL (1.40-6.50); %Basophils 0.5 % (0.0-1.0); %Eosinophils 0.2 % (0.0-10.0); %Lymphocytes 20.4 % (21.0-51.0); %Monocytes 8.6 % (0.0-10.0); %Neutrophils 70.3 % (42.0-75.0); Hemoglobin 11.6 g/dL (14.0-18.0); Mean Corpuscular HGB CONC 32.8 g/dL (32.0-36.0); Mean Corpuscular Hemoglobin 29.5 pg (27.0-31.0); Mean Corpuscular Volume 89.9 fL (78.0-98.0); Mean Platelet Volume 6.6 fL (7.4-10.4); Platelet Count 488 thou/uL (130-400); RBC Distribution Width 12.8 % (11.5-14.5); Red Blood Cell (RBC) Count 3.91 mill/uL (4.70-6.10); White Blood Cell (WBC) Count 16.5 thou/uL (4.8-10.8)
[2021-09-27 06:18] LABS: ALT (SGPT) 65 U/L (8-55); AST (SGOT) 36 U/L (5-34); Albumin 3.5 g/dL (3.5-5.0); Alkaline Phosphatase 94 U/L (40-110); Anion Gap 15 mmol/L (10-20); BUN (Urea Nitrogen) 15 mg/dL (8.4-25.7); Bilirubin, Total 0.9 mg/dL (0.2-1.2); Calc. Creatinine Clearance 91 mL/min (70-130); Calcium 9.1 mg/dL (7.8-10.44); Carbon Dioxide 23 mmol/L (22-29); Chloride 104 mmol/L (98-107); Globulin 3.6 g/dL (2.4-3.5); Glucose 90 mg/dL (70-105); Potassium 3.2 mmol/L (3.5-5.1); Protein, Total 7.1 g/dL (6.0-8.3); Sodium 139 mmol/L (136-145)
[2021-09-27] MEDS: Aspirin Chewable 81 MG TAB PO SCH (09:16)
[2021-09-27] MEDS: Senokot S 8.6-50 MG TAB PO SCH ×2 (09:16→21:26)
[2021-09-27] MEDS: Enoxaparin Sodium 40 MG/0.4 ML SYRINGE SC SCH (09:16)
[2021-09-27] MEDS: Amlodipine 10 MG TAB PO SCH (09:17)
[2021-09-27] MEDS: Carvedilol 25 MG TAB PO SCH ×2 (09:17→18:09)
[2021-09-27] MEDS: Lisinopril 20 MG TAB PO SCH (09:17)
[2021-09-27] MEDS: Aspirin 300 MG Suppository PR SCH (09:19)
[2021-09-27] MEDS: Pantoprazole 40 MG VIAL IVP SCH (09:20)
[2021-09-27] MEDS: Silver Sulfadiazine 50 GM TUBE TOP SCH (09:22)
[2021-09-27] MEDS ORDERED: Potassium Chloride 20 MEQ TAB PO SCH (10:15)
[2021-09-27] MEDS: Atorvastatin Calcium 40 MG TAB PO SCH (21:26)
[2021-09-28 06:37] LABS: Anion Gap 15 mmol/L (10-20); BUN (Urea Nitrogen) 19 mg/dL (8.4-25.7); Calc. Creatinine Clearance 99 mL/min (70-130); Calcium 9.2 mg/dL (7.8-10.44); Carbon Dioxide 23 mmol/L (22-29); Chloride 107 mmol/L (98-107); Glucose 88 mg/dL (70-105); Potassium 3.6 mmol/L (3.5-5.1); Sodium 141 mmol/L (136-145)
[2021-09-28] MEDS: Senokot S 8.6-50 MG TAB PO SCH ×2 (08:28→22:50)
[2021-09-28] MEDS: Aspirin Chewable 81 MG TAB PO SCH (08:28)
[2021-09-28] MEDS: Carvedilol 25 MG TAB PO SCH ×2 (08:28→16:24)
[2021-09-28] MEDS: Amlodipine 10 MG TAB PO SCH (08:29)
[2021-09-28] MEDS: Lisinopril 20 MG TAB PO SCH (08:29)
[2021-09-28] MEDS: Aspirin 300 MG Suppository PR SCH (08:30)
[2021-09-28] MEDS: Enoxaparin Sodium 40 MG/0.4 ML SYRINGE SC SCH (08:30)
[2021-09-28] MEDS: Silver Sulfadiazine 50 GM TUBE TOP SCH (08:31)
[2021-09-28] MEDS: Atorvastatin Calcium 40 MG TAB PO SCH (22:50)
[2021-09-29 06:15] LABS: #Basophils 0.1 thou/uL (0.0-0.2); #Eosinphils 0.1 thou/uL (0.0-0.7); #Lymphocytes 3.8 thou/uL (1.20-3.40); #Monocytes 1.2 thou/uL (0.11-0.59); %Basophils 0.4 % (0.0-1.0); %Eosinophils 0.6 % (0.0-10.0); %Lymphocytes 23.5 % (21.0-51.0); %Monocytes 7.5 % (0.0-10.0); %Neutrophils 68.1 % (42.0-75.0); Hemoglobin 12.1 g/dL (14.0-18.0); Mean Corpuscular Volume 90.4 fL (78.0-98.0); Mean Platelet Volume 6.8 fL (7.4-10.4); Platelet Count 492 thou/uL (130-400); RBC Distribution Width 12.6 % (11.5-14.5); Red Blood Cell (RBC) Count 4.31 mill/uL (4.70-6.10); White Blood Cell (WBC) Count 16.2 thou/uL (4.8-10.8)
[2021-09-29 06:42] LABS: Anion Gap 15 mmol/L (10-20); BUN (Urea Nitrogen) 21 mg/dL (8.4-25.7); Calc. Creatinine Clearance 90 mL/min (70-130); Calcium 9.3 mg/dL (7.8-10.44); Carbon Dioxide 24 mmol/L (22-29); Chloride 107 mmol/L (98-107); Glucose 101 mg/dL (70-105); Potassium 3.5 mmol/L (3.5-5.1); Sodium 142 mmol/L (136-145)
[2021-09-29] MEDS: Enoxaparin Sodium 40 MG/0.4 ML SYRINGE SC SCH (08:03)
[2021-09-29] MEDS: Aspirin Chewable 81 MG TAB PO SCH (08:04)
[2021-09-29] MEDS: Senokot S 8.6-50 MG TAB PO SCH ×2 (08:04→20:19)
[2021-09-29] MEDS: Carvedilol 25 MG TAB PO SCH ×2 (08:04→17:42)
[2021-09-29] MEDS: Amlodipine 10 MG TAB PO SCH (08:04)
[2021-09-29] MEDS: Lisinopril 20 MG TAB PO SCH (08:04)
[2021-09-29] MEDS: Silver Sulfadiazine 50 GM TUBE TOP SCH (08:05)
[2021-09-29] MEDS: Aspirin 300 MG Suppository PR SCH (08:05)
[2021-09-29] MEDS: Atorvastatin Calcium 40 MG TAB PO SCH (20:19)
[2021-09-30 05:37] LABS: #Eosinphils 0.1 thou/uL (0.0-0.7); #Lymphocytes 3.5 thou/uL (1.20-3.40); #Monocytes 1.1 thou/uL (0.11-0.59); #Neutrophils 9.9 thou/uL (1.40-6.50); %Basophils 0.3 % (0.0-1.0); %Eosinophils 0.6 % (0.0-10.0); %Lymphocytes 24.2 % (21.0-51.0); %Monocytes 7.4 % (0.0-10.0); %Neutrophils 67.5 % (42.0-75.0); Mean Corpuscular Volume 90.2 fL (78.0-98.0); Mean Platelet Volume 6.7 fL (7.4-10.4); Platelet Count 515 thou/uL (130-400); RBC Distribution Width 12.6 % (11.5-14.5); Red Blood Cell (RBC) Count 4.29 mill/uL (4.70-6.10); White Blood Cell (WBC) Count 14.6 thou/uL (4.8-10.8)
[2021-09-30 05:52] LABS: Anion Gap 14 mmol/L (10-20); BUN (Urea Nitrogen) 21 mg/dL (8.4-25.7); Calc. Creatinine Clearance 90 mL/min (70-130); Calcium 9.5 mg/dL (7.8-10.44); Carbon Dioxide 25 mmol/L (22-29); Chloride 108 mmol/L (98-107); Glucose 98 mg/dL (70-105); Potassium 3.4 mmol/L (3.5-5.1); Sodium 144 mmol/L (136-145)
[2021-09-30] MEDS: Senokot S 8.6-50 MG TAB PO SCH ×2 (08:02→21:08)
[2021-09-30] MEDS: Amlodipine 10 MG TAB PO SCH (08:02)
[2021-09-30] MEDS: Enoxaparin Sodium 40 MG/0.4 ML SYRINGE SC SCH (08:02)
[2021-09-30] MEDS: Silver Sulfadiazine 50 GM TUBE TOP SCH (08:02)
[2021-09-30] MEDS: Carvedilol 25 MG TAB PO SCH ×2 (08:03→16:14)
[2021-09-30] MEDS: Lisinopril 20 MG TAB PO SCH (08:03)
[2021-09-30] MEDS: Aspirin 300 MG Suppository PR SCH (08:03)
[2021-09-30] MEDS: Aspirin Chewable 81 MG TAB PO SCH (08:03)
[2021-09-30 11:37] VITALS: BMI 25.5
[2021-09-30] MEDS: Atorvastatin Calcium 40 MG TAB PO SCH (21:10)
[2021-09-30] MEDS: Lansoprazole 3 MG/ML ORAL SUSPENSION PO SCH (23:02)
[2021-10-01 04:56] LABS: #Basophils 0.1 thou/uL (0.0-0.2); #Eosinphils 0.1 thou/uL (0.0-0.7); #Lymphocytes 3.8 thou/uL (1.20-3.40); #Monocytes 1.3 thou/uL (0.11-0.59); #Neutrophils 11.5 thou/uL (1.40-6.50); %Basophils 0.4 % (0.0-1.0); %Eosinophils 0.5 % (0.0-10.0); %Lymphocytes 22.6 % (21.0-51.0); %Monocytes 7.7 % (0.0-10.0); %Neutrophils 68.8 % (42.0-75.0); Hemoglobin 12.2 g/dL (14.0-18.0); Mean Corpuscular HGB CONC 31.8 g/dL (32.0-36.0); Mean Corpuscular Hemoglobin 28.9 pg (27.0-31.0); Mean Corpuscular Volume 90.8 fL (78.0-98.0); Mean Platelet Volume 6.6 fL (7.4-10.4); Platelet Count 504 thou/uL (130-400); RBC Distribution Width 12.6 % (11.5-14.5); Red Blood Cell (RBC) Count 4.23 mill/uL (4.70-6.10); White Blood Cell (WBC) Count 16.7 thou/uL (4.8-10.8)
[2021-10-01 05:21] LABS: Anion Gap 13 mmol/L (10-20); BUN (Urea Nitrogen) 25 mg/dL (8.4-25.7); Calc. Creatinine Clearance 87 mL/min (70-130); Calcium 9.3 mg/dL (7.8-10.44); Carbon Dioxide 26 mmol/L (22-29); Chloride 109 mmol/L (98-107); Glucose 105 mg/dL (70-105); Potassium 3.3 mmol/L (3.5-5.1); Sodium 145 mmol/L (136-145)
[2021-10-01] MEDS: Senokot S 8.6-50 MG TAB PO SCH ×2 (09:14→19:26)
[2021-10-01] MEDS: Lansoprazole 3 MG/ML ORAL SUSPENSION PO SCH ×3 (09:14→19:26)
[2021-10-01] MEDS: Aspirin Chewable 81 MG TAB PO SCH (09:15)
[2021-10-01] MEDS: Aspirin 300 MG Suppository PR SCH ×2 (09:15→09:19)
[2021-10-01] MEDS: Lisinopril 20 MG TAB PO SCH (09:15)
[2021-10-01] MEDS: Amlodipine 10 MG TAB PO SCH (09:16)
[2021-10-01] MEDS: Carvedilol 25 MG TAB PO SCH ×2 (09:16→19:14)
[2021-10-01] MEDS: Enoxaparin Sodium 40 MG/0.4 ML SYRINGE SC SCH (09:18)
[2021-10-01] MEDS: Silver Sulfadiazine 50 GM TUBE TOP SCH ×2 (09:20→09:21)
[2021-10-01 12:03] LABS: SARS-CoV-2 PCR by NAA Not Detected (NotDetected)
[2021-10-01] MEDS ORDERED: Potassium Chloride 20 MEQ TAB PO SCH (16:15)
[2021-10-01] MEDS: Atorvastatin Calcium 40 MG TAB PO SCH (19:26)
[2021-10-02 05:12] LABS: Anion Gap 14 mmol/L (10-20); BUN (Urea Nitrogen) 26 mg/dL (8.4-25.7); Calc. Creatinine Clearance 88 mL/min (70-130); Calcium 9.4 mg/dL (7.8-10.44); Carbon Dioxide 25 mmol/L (22-29); Chloride 110 mmol/L (98-107); Glucose 107 mg/dL (70-105); Potassium 3.4 mmol/L (3.5-5.1); Sodium 146 mmol/L (136-145)
[2021-10-02 05:18] LABS: #Basophils 0.1 thou/uL (0.0-0.2); #Eosinphils 0.1 thou/uL (0.0-0.7); #Lymphocytes 3.8 thou/uL (1.20-3.40); #Monocytes 1.3 thou/uL (0.11-0.59); #Neutrophils 11.3 thou/uL (1.40-6.50); %Basophils 0.5 % (0.0-1.0); %Eosinophils 0.8 % (0.0-10.0); %Lymphocytes 22.7 % (21.0-51.0); %Monocytes 7.7 % (0.0-10.0); %Neutrophils 68.4 % (42.0-75.0); Hemoglobin 11.6 g/dL (14.0-18.0); Mean Corpuscular HGB CONC 30.9 g/dL (32.0-36.0); Mean Corpuscular Hemoglobin 27.8 pg (27.0-31.0); Mean Corpuscular Volume 89.9 fL (78.0-98.0); Mean Platelet Volume 6.6 fL (7.4-10.4); Platelet Count 502 thou/uL (130-400); RBC Distribution Width 12.7 % (11.5-14.5); Red Blood Cell (RBC) Count 4.17 mill/uL (4.70-6.10); White Blood Cell (WBC) Count 16.6 thou/uL (4.8-10.8)
[2021-10-02 05:19] LABS: Platelet Morphology Comment Appears Increased
[2021-10-02] MEDS ORDERED: Potassium Chloride 20 MEQ TAB PO SCH (06:15)
[2021-10-02] MEDS ORDERED: Electrolyte Replacement Protocol 1 EACH FS PRN (06:15)
[2021-10-02 07:13] LABS: Magnesium 2.3 mg/dL (1.6-2.6)
[2021-10-02] MEDS ORDERED: Rivaroxaban 10 MG TAB ONE (07:57)
[2021-10-02] MEDS: Lansoprazole 3 MG/ML ORAL SUSPENSION PO SCH (09:20)
[2021-10-02] MEDS: Lisinopril 20 MG TAB PO SCH (09:20)
[2021-10-02] MEDS: Aspirin Chewable 81 MG TAB PO SCH (09:22)
[2021-10-02] MEDS: Enoxaparin Sodium 40 MG/0.4 ML SYRINGE SC SCH (09:22)
[2021-10-02] MEDS: Senokot S 8.6-50 MG TAB PO SCH (09:22)
[2021-10-02] MEDS: Aspirin 300 MG Suppository PR SCH (09:23)
[2021-10-02] MEDS: Carvedilol 25 MG TAB PO SCH (09:23)
[2021-10-02] MEDS: Amlodipine 10 MG TAB PO SCH (09:23)
[2021-10-02] MEDS: Silver Sulfadiazine 50 GM TUBE TOP SCH (09:24)
[2021-10-02 12:13] VITALS: TEMP 98.2
[2021-10-02 12:58] VITALS: BP 165/86
== END 2021-10-02 16:59 | disposition admitted as inpatient to this hospital (09) | DRG 64 ==
LOC: ERS 20:04 → IMCU/EMU 23:42 → NEURO 09-11 13:44
PROVIDERS: ADMIT Internal Medicine; ATTEND Internal Medicine
DX: I63.81 Other cerebral infarction due to occlusion or stenosis of small artery (principal); G93.41 Metabolic encephalopathy; I21.A1 Myocardial infarction type 2; N17.9 Acute kidney failure, unspecified; M62.82 Rhabdomyolysis; E87.0 Hyperosmolality and hypernatremia; E87.2 Acidosis; G81.94 Hemiplegia, unspecified affecting left nondominant side; I47.2 Ventricular tachycardia; T17.418A Gastric contents in trachea causing other injury, initial encounter; Z20.822 Contact with and (suspected) exposure to COVID-19; R29.704 NIHSS score 4; E87.8 Other disorders of electrolyte and fluid balance, not elsewhere classified; N18.30 Chronic kidney disease, stage 3 unspecified; R13.10 Dysphagia, unspecified; D63.1 Anemia in chronic kidney disease; G93.89 Other specified disorders of brain; E86.0 Dehydration; L89.899 Pressure ulcer of other site, unspecified stage; D72.829 Elevated white blood cell count, unspecified; I12.9 Hypertensive chronic kidney disease with stage 1 through stage 4 chronic kidney disease, or unspecified chronic kidney disease; R31.9 Hematuria, unspecified; E87.6 Hypokalemia; Z79.899 Other long term (current) drug therapy
CPT/HCPCS: 36415; 36416; 36600; 51701; 70450; 70498; 70551; 71045; 71250; 72125; 74018; 74177; 74230; 76705; 80048; 80053; 80061; 80074; 80202; 80306; 80307; 81003; 81015; 82140; 82550; 82553; 82607; 82746; 82805; 83036; 83605; 83735; 84100; 84145; 84443; 84484; 85014; 85018; 85025; 85049; 85610; 85730; 86140; 87040; 87086; 93005; 93010; 93306; 93880; 94760; 95712; 95819; 95957; 96365; 96375; C9113; J0360; J0692; J0696; J1650; J1885; J2405; J3370; J3480; J3486; J3490; J7042; J7050; J7070; Q0162; Q9963; Q9967; U0002; U0003; U0005